=== PATIENT | male | born 1975 | race Caucasian/White ===

== ENCOUNTER 2017-08-14 15:10 | Outpatient (RCR) | payer OTHER ==
[~2017-08-14 15:10] MED LIST: DOCU-143 PO; HYDR-1231 PO; HYDR-3812 PO; SULF1TAB38 PO
== END 2017-08-14 16:16 | disposition home or self-care (01) ==
PROVIDERS: ATTEND Family Medicine
DX: M54.2 Cervicalgia (principal)